=== PATIENT | female | born 1990 | race Caucasian/White ===

== ENCOUNTER 2018-05-26 06:28 | Day surgery (SDC) | payer BC ==
[2018-05-19 09:45] VITALS: BMI 23.3
--- NOTE | 2018-05-25 13:03 | HP ---
HISTORY OF PRESENT ILLNESS: Ms. Carranza is a very pleasant 28-year-old woman here today for 3 months worth of severe right lower extremity S1 pain related to a right lateral disk herniation at L5 as seen on MRI from [facility], which is on a disc. She has had injections and therapy and feels if anything, her pains have gotten significantly worse. She is recumbent on the table when I entered the room as this is the most comfortable position for her to be at any given time. 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 PAST MEDICAL HISTORY: Significant for no major issues. PAST SURGICAL HISTORY: She has no previous surgeries. MEDICATIONS: She does take 600 mg of gabapentin. No other medications otherwise. ALLERGIES: NO KNOWN DRUG ALLERGIES. PHYSICAL EXAMINATION: GENERAL: The patient is alert and oriented x3. MUSCULOSKELETAL: Gait is profoundly antalgic. Lower extremity motor exam is limited by pain. She has a positive right straight leg raise. ASSESSMENT: Lumbar disk herniation. PLAN: Dr. Gaines met with the patient, reviewed imaging and advocated for right L5 diskectomy. He explained to the patient the risks, benefits, and alternatives of the procedure. The patient expressed understanding and elected to move forward with the surgery as discussed. I do believe the patient is mentally competent and capable of making medical decisions for herself. We will move forward with surgery as planned. Job ID: [id number]
[2018-05-26] MEDS ORDERED: Thrombin 5000 UNITS/5 ML VIAL ONE (06:44)
[2018-05-26] MEDS ORDERED: Bupivacaine HCl 0.5%/Epinephrine 1:200,000/PF 30 ml Vial ONE (06:44)
[2018-05-26] MEDS ORDERED: CEFAZOLIN 2 GM/50 ML BAG ONE ×2 (07:53→11:51)
--- NOTE | 2018-05-26 08:38 | PRG ---
DATE OF SERVICE: 05/26/2018 SUBJECTIVE: Ms. Carranza is a 28-year-old female, who has been contending with right S1 radiculopathy since January of this past year. She has been treating this nonsurgically with medications, physical therapy, and injections. It has started to impact substantially with her quality of life. She is unable to mobilize for any extended period of time before feeling the need to lay down. She was initially evaluated in the outpatient setting by Zackary Quinn, where she brought with her an MRI from an outside facility, which revealed the presence of a large protuberant L5 disk herniation eccentric to the right side. This displaces the descending S1 nerve root and impinges it between the disk and the facet joint posteriorly. She and I had made efforts to communicate by phone prior to today, and we were unsuccessful. I met with her this morning before surgery to again review with her diagnosis, her imaging, her clinical symptoms, as well as her exam. Also reviewed with her in detail the nonsurgical treatments for this problem, all of which she has pursued. Also reviewed with her in detail the surgical treatment that is proposed today, which is a right L5 decompression and diskectomy. I explained to her all the risks, all the benefits and again all the alternatives. I answered all of her questions including those of her . She did offer and provide informed consent for the surgical procedure. Job ID: [id number]
[2018-05-26] MEDS ORDERED: Fentanyl 100 MCG/2 ML VIAL ONE ×2 (09:45→10:16)
[2018-05-26] MEDS ORDERED: Meperidine HCl/PF 25 MG/ML VIAL ONE (09:56)
[2018-05-26] MEDS ORDERED: HYDROcodone/Acetaminophen 5/325 mg Tablet ONE (11:34)
[2018-05-26] MEDS ORDERED: Lidocaine 1% PF 5 ML VIAL ONE (14:56)
[2018-05-26] MEDS ORDERED: PROPOFOL 200 MG/20 ML VIAL ONE (14:56)
[2018-05-26] MEDS ORDERED: Ondansetron PF 4 MG/2 ML Vial ONE (14:56)
--- NOTE | 2018-05-26 16:45 | OP ---
DATE OF PROCEDURE: 05/26/2018 LABEL DRIER: Zackary Quinn PA-C INDICATION: Pain. DIAGNOSIS: Lumbar radiculopathy. PROCEDURE: Right L5 diskectomy. ANESTHESIA: General. TECHNIQUE: The patient was brought into the operating room, placed under general anesthesia. She was flipped from the supine to prone position on operating room table. A linear incision was planned over the L5 segment. After prepping and draping and after preoperative pause, the incision was created. The soft tissues were swept right of midline. A self-retaining retractor was placed in the wound for optimal exposure. After confirming appropriate level with C-arm fluoroscopy, high-speed cutting drill bit as well as 2 and 3 mm Kerrisons were used to perform laminectomy along the inferior aspect of L5 and the superior aspect of S1. The laminectomy was extended to encompass the medial third of facet joint on the right. The descending S1 nerve root was identified and mobilized medially with a nerve root retractor. An 11-blade knife was used to perform an annulotomy. A large protuberant disk mass was removed. The wound was irrigated. Hemostasis was maintained throughout. The wound was then closed in anatomic layers, and a pressure dressing was applied. There were no known procedural complications. Job ID: [id number]
== END 2018-05-26 12:45 | disposition home or self-care (01) ==
LOC: SDC 06:28
PROVIDERS: ATTEND Neurological Surgery
PROC: 0SB20ZZ Excision of Lumbar Vertebral Disc, Open Approach (ICD-10-PCS; principal; 2018-05-26)
DX: M51.16 Intervertebral disc disorders with radiculopathy, lumbar region (principal); Z79.899 Other long term (current) drug therapy
CPT/HCPCS: 76000; 96374; J0670; J2001; J2175; J2405; J2704; J3010

== ENCOUNTER 2019-02-10 13:45 | Outpatient (CLI) | payer BC ==
[~2019-02-10 13:45] MED LIST: Gadobenate Dimeglumine 529 MG/1 ML (20ML VIAL) ONE
--- NOTE | 2019-02-10 15:23 | MRI ---
Lumbar spine MRI with and without contrast: 02/10/2019 COMPARISON: None HISTORY: Lumbar radiculopathy, history of lumbar spine surgery, right leg pain TECHNIQUE: Multiplanar multisequence MR imaging of the lumbar spine is obtained with and without cont rast FINDINGS: There is a focus of blooming artifact overlying the subcutaneous fat in the posterior midli ne location at the axial level of the L5-S1 intervertebral disc, suggesting prior surgery at this level. On the basis of 5 lumbar type vertebral bodies, the medullaris terminates at the T12-L1 level. The sagittal STIR imaging demonstrates no acute findings. T12-L1: Unremarkable L1-2: Unremarkable L2-3: Unremarkable L3-4: Unremarkable L4-5: There is disc space narrowing and disc desiccation with a small central annular tear. No signif icant central canal or neural foraminal stenosis. L5-S1: There is disc space narrowing and disc desiccation with disc bulge. There is a central/right p aracentral disc herniation which abuts the anterior aspect of the right S1 nerve root. This disc herniation measures 7 mm in AP dimension and causes moderate right lateral recess stenosis. No signif icant neural foraminal stenosis noted on either side. There is a suggestion of prior right hemilaminectomy at this level. The postcontrast imaging demonstrates no abnormal enhancement involving the contents of the thecal sa c, the imaged osseous structures, or the intervertebral discs. The imaged retroperitoneal structures demonstrate no acute findings. IMPRESSION: Right paracentral disc herniation at L5-S1 with associated right lateral recess stenosis abutting the ventral aspect of the right S1 nerve root.
== END 2019-02-10 13:46 | disposition home or self-care (01) ==
LOC: SCSMRI 13:45
PROVIDERS: ATTEND Neurological Surgery
DX: M54.16 Radiculopathy, lumbar region (principal); M51.27 Other intervertebral disc displacement, lumbosacral region; M48.07 Spinal stenosis, lumbosacral region
CPT/HCPCS: 72158; A9577